=== PATIENT | female | born 1980 | race Caucasian/White ===

== ENCOUNTER → 2019-06-17 | Outpatient (CLI) | payer SELFPAY ==
[2019-06-17 09:20] VITALS: BMI 46.7
== END | disposition home or self-care (01) ==
LOC: LABSPEC 14:53
PROVIDERS: Referring Provider Physician Assistant Surgical; Visit Provider Physician Assistant Surgical
DX: J02.9 Acute pharyngitis, unspecified (principal)
CPT/HCPCS: 87070

== ENCOUNTER → 2022-07-16 | Outpatient (CLI) | payer OTHER, SELFPAY ==
[2022-07-16 14:04] LABS: Hemoglobin A1c 5.4 % (3.8-5.6)
[2022-07-16 14:11] LABS: T4 Free Direct 1.27 ng/dL (0.76-1.46); Thyroid Stim Hormone (TSH) 0.76 uIU/mL (0.358-3.74)
[2022-07-24 12:02] LABS: HPV APTIMA, High Risk Negative (Negative)
== END | disposition home or self-care (01) ==
LOC: WOBLAB 12:23
PROVIDERS: Visit Provider Student in an Organized Health Care Education/Training Program
DX: Z12.4 Encounter for screening for malignant neoplasm of cervix (principal); Z13.29 Encounter for screening for other suspected endocrine disorder
CPT/HCPCS: 36415; 83036; 84439; 84443; 87624; 88175; G0145

== ENCOUNTER → 2022-08-01 | Outpatient (CLI) | payer OTHER, SELFPAY ==
--- NOTE | 2022-08-01 09:40 | BI_ITS ---
MAMMOGRAPHY - BILATERAL SCREENING REASON FOR EXAM: Female, 42 years old. Routine annual screening examination. PERTINENT HISTORY: Non-contributory. TECHNIQUE: Digital bilateral breast bradly (3D mammographic acquisition) in the CC and MLO projections. 2-D mediolateral oblique (MLO) and craniocaudad (CC) views of both breasts were obtained. CAD: Full Field Digital Mammography with Computer Added Detection was performed. COMPARISON: None. Baseline examination. FINDINGS: Breast Composition: There are scattered areas of fibroglandular density. There is a 1.2 cm x 1.4 cm well-defined nodule in the retroareolar region of the left breast. There is also evidence of a 8.3 mm well-defined nodule in the inferior central portion of the right breast. Benign-appearing bilateral axillary lymph nodes. No other significant abnormalities are identified. BI/SCRN MAMM (CAD)W/BRADLY BILAT IMPRESSION: 2 well-defined nodular densities are seen in the right breast as described. Correlation with ultrasound is recommended. ASSESSMENT CATEGORY: BIRADS Category 0: Incomplete. Need additional imaging evaluation. A letter regarding these results will be sent to the patient by the facility within 30 days. Approximately 10% of breast cancers are not detected by mammography. A normal mammogram should not delay biopsy of a clinically suspicious abnormality. [id number] Electronically Signed: Rj Carr MD at 10:20 EDT ,
== END | disposition home or self-care (01) ==
PROVIDERS: PCP Family Medicine; Referring Provider Student in an Organized Health Care Education/Training Program; Visit Provider Student in an Organized Health Care Education/Training Program
DX: Z12.31 Encounter for screening mammogram for malignant neoplasm of breast (principal)
CPT/HCPCS: 77063; 77067

== ENCOUNTER → 2022-08-06 | Outpatient (CLI) | payer OTHER, SELFPAY ==
--- NOTE | 2022-08-06 11:02 | US_ITS ---
STUDY: ULTRASOUND BREAST - LEFT REASON FOR EXAM: Female, 42 years old. Abnormal screening mammogram. TECHNIQUE: Axial and longitudinal images of the LEFT breast were performed with a high resolution ultrasound transducer. # OF IMAGES: 28 COMPARISON: Comparison is made with prior mammogram dated 08/01/2022. FINDINGS: LEFT Breast: The mammographic abnormality corresponds to a 1.2 cm x 1.3 cm x 1.1 cm well-defined hypoechoic solid nodule at the 11 o''clock position of the breast at 1 cm from the nipple. Biopsy recommended. Also evidence of a 7 mm x 8 mm x 4 mm benign-appearing lymph node at the 6 o''clock position of the breast in the inframammary fold. A similar appearing nodule measuring 5 mm x 7 mm x 5 mm is seen at the 5 o''clock position of the breast at 5 cm from the nipple. US/Breast Limited Unilateral IMPRESSION: 1.2 cm x 1.3 cm x 1.1 cm well-defined hypoechoic solid nodule at the 11 o''clock position of the breast at 1 cm from nipple. Biopsy is recommended. There are 2, Small benign-appearing lymph nodes are seen at the 6 o''clock and 5 o''clock position of the breast as described. ASSESSMENT CATEGORY: BIRADS Category 4: Suspicious - Biopsy Should Be Considered. A letter regarding these results will be sent to the patient by the facility within 30 days. Electronically Signed: Rj Carr MD at 12:26 EST ,
== END | disposition home or self-care (01) ==
LOC: OPUS 10:59
PROVIDERS: PCP Family Medicine; Visit Provider Student in an Organized Health Care Education/Training Program
DX: R92.8 Other abnormal and inconclusive findings on diagnostic imaging of breast (principal); N63.0 Unspecified lump in unspecified breast
CPT/HCPCS: 76642

== ENCOUNTER → 2022-08-11 | Outpatient (CLI) | payer OTHER, SELFPAY ==
--- NOTE | 2022-08-11 | IMM_PTH ---
PATIENT: CHERELLE MCCLAIN LOC: [facility] U#:[id number] AGE/SX: 42/F ROOM: RE08/11/[address]: Dr. Leila Barth MD : 1980 BED: DIS: 08/11/2022 SPEC #: [id number] RECD: 08/13/22 09:11 STATUS: CHEMA REQ #: [id number] ANAIS: 08/11/22 00:[address]: Leila Barth DEPT: IMMUNOHISTOCHEMISTRY RECD BY: Queta Ro ENTERED: 08/13/22 09:14 SP TYPE: IMMUNO OTHR DR: Dr. Aaron Sharpe DO Tissues: Left breast, NOS Procedures: Calponin-1(initial) P40 (add) PHYSICIAN & INSTITUTION [place] [id number] SPECIMEN INFORMATION: Tissue Source: Left breast nodule Clinical Info: Left breast nodule Specimen Number: [id number] CPT code: 52149, 67850 METHODOLOGY: Deparaffinized sections of prefer/formalin-fixed tissue or PAP/DQ stained slides are incubated with monoclonal/polyclonal antibodies/oligonucleotide probes. Localization is made via biotin free immunoperoxidase method. Appropriate controls are performed and reacted as expected. Results on target cell population are indicated in the following table: RESULTS: ANTIBODY / CLONE RESULT P40 (BC28) positive Calponin-1 ([id number]) positive These tests were developed and their performance characteristics determined by [facility]. They may not have been cleared or approved by the [place]. Food and Drug Administration. The FDA has determined that such clearance or approval is not necessary. The above immunohistochemical/dualISH markers are ordered and reviewed by the Pathologist. INTERPRETATION: Left breast nodule: Negative for malignancy /SJ:andrey 08/14/2022
--- NOTE | 2022-08-11 14:30 | BRBX_PTH ---
PATIENT: CHERELLE MCCLAIN LOC: [facility] #:[id number] AGE/SX: 42/F ROOM: RE08/11/[address]: Dr. Leila Barth MD : 1980 BED: DIS: 08/11/2022 SPEC #: [id number] RECD: 08/11/22 16:44 STATUS: CHEMA REGail #: [id number] ANAIS: 08/11/22 14:[address]: Leila Barth DEPT: SURGICAL PATHOLOGY RECD BY: Sierra Otoole ENTERED: 08/12/22 07:59 SP TYPE: BREAST BX OTHR DR: Dr. Aaron Sharpe, DO Tissues: Left breast, NOS Procedures: Surgery Specimen Level IV HEADER OPERATION: Left breast nodule PRE-OP DIAGNOSIS: Left breast nodule TISSUE SUBMITTED: Left breast nodule/tissue, 11 o?clock, 1cm MICROSCOPIC DIAGNOSIS Left breast biopsy: Consistent with fibroadenoma with adenosis and intraductal hyperplasia without atypia. Negative for malignancy. /SJ 08/13/22 COMMENT Immunohistochemistry ([id number]) supports the above diagnosis. This case is discussed with Dr. Barth on 08/13/22. Correlation with clinical, radiologic findings and appropriate follow up are necessary. MICROSCOPIC DESCRIPTION Slides are reviewed. GROSS DESCRIPTION Received in formalin is one container labeled with the patient name and designated left breast. The specimen consists of multiple irregular and elongated fragments of jasso-yellow fibroadipose tissue meauring in aggregate 2 x 0.5 x 0.1 cm. The specimen is totally submitted in cassettes. / SJ:andrey 08/12/2022 TC:1 CPT:90934
== END | disposition home or self-care (01) ==
LOC: LABSPEC 16:48
PROVIDERS: PCP Family Medicine; Visit Provider Surgery
DX: N63.20 Unspecified lump in the left breast, unspecified quadrant (principal)
CPT/HCPCS: 88305; 88341; 88342